=== PATIENT | female | born 1940 | race Caucasian/White ===

== ENCOUNTER 2016-12-04 19:35 | Emergency (ER) | payer OTHER ==
[~2016-12-04] VITALS: Ht 162.6 cm; Wt 49.7 kg
[~2016-12-04 19:35] MED LIST: AMLO-218; ASPI-664; CARB100T2; SIMV40TA2; TEN25
[2016-12-04 19:44] VITALS: Ht 162.6 cm; Wt 49.7 kg
--- NOTE | 2016-12-04 23:21 | ERA ---
ER Documentation Chief Complaint Date/Time DATE: 12/04/16 TIME: 23:20 Chief Complaint Right shoulder pain HPI The patient is a 76-year-old female, presenting to the ER because of right shoulder pain after she had a mechanical fall just prior to arrival. The pain is 2/10, worse with movement. He denies syncope, near syncope, neck pain, chest pain, head pain, abdominal pain, vomiting, dysuria, diarrhea. She does not smoke or drink Past medical history: hypertension, dyslipidemia, history of left breast carcinoma Past surgical history: , left breast lumpectomy ROS All systems reviewed and are negative except as per history of present illness. Medications Home Meds Active Scripts Acetaminophen* (Tylophen*) 500 Mg Capsule, 2 CAP PO Q8H Y for PAIN AND OR ELEVATED TEMP, #20 CAP Prov:YUSUF POP MD 12/05/16 Reported Medications Aspirin* (Aspirin* EC) 81 Mg Tablet. 11/04/10 Carbamazepine* (Carbamazepine*) 100 Mg Tab.chew 11/04/10 Amlodipine Besylate* (Norvasc*) 10 Mg Tablet 11/04/10 Simvastatin* (Zocor*) 40 Mg Tablet 11/04/10 Atenolol (Tenormin) 25 Mg Tab 11/04/10 Allergies Allergies: Coded Allergies: No Known Drug Allergies (Verified Allergy, Mild, 11/07/10) PMhx/Soc History of Surgery: Yes (LYMPHECTOMY, C-SEC X2) Anesthesia Reaction: No Hx Neurological Disorder: No Hx Respiratory Disorders: No Hx Cardiac Disorders: Yes (HTN, HIGH CHOLESTEROL) Hx Psychiatric Problems: No Hx Miscellaneous Medical Probl: Yes (LEFT BREAST CA) Hx Alcohol Use: No Hx Substance Use: No Hx Tobacco Use: Yes Physical Exam Vitals Vital Signs Date Time Temp Pulse Resp B/P Pulse Ox O2 Delivery O2 Flow Rate FiO2 12/04/16 19:44 100.4 98 20 127/63 96 Physical Exam Const: No acute distress. Head: Atraumatic. Eyes: Normal Conjunctiva. ENT: Normal External Ears, Nose and Mouth. Neck: Full range of motion. No meningismus. Resp: Clear to auscultation bilaterally. Cardio: Regular rate and rhythm, no murmurs. Abd: Soft, non distended, normal bowel sounds, non tender. Skin: No petechiae or rashes. Back: No midline or flank tenderness. Ext: Right shoulder with full range of motion, no erythema, no crepitus, no ecchymosis Neur: Awake and alert. No focal deficit Psych: Normal Mood and Affect. Procedures/MDM [place] [id number] Radiology Main Line: [phone] DIAGNOSTIC IMAGING REPORT Patient: KELSEA DILLON : 1940 Age: 76 Sex: F MR #: [id number] DOS: 12/04/16 2333 Ordering MD: YUSUF POP MD Location: E/R Room/Bed: PROCEDURE: XR right shoulder. CLINICAL INDICATION: PAIN TECHNIQUE: AP, Internal and external rotation views of the left shoulder were performed. COMPARISON: None. FINDINGS: There is normal osseous mineralization and alignment. No acute fracture or osseous lesion is identified. There are normal joints without evidence of arthritis or dislocation. The soft tissues are unremarkable. IMPRESSION: 1. Unremarkable right shoulder. RPTAT:AAJJ Physician Darlin Date Time Electronically viewed and signed by Physician Darlin on 12/05/2016 00:08 LEONEL/ CC: YUSUF POP MD MEDICAL MAKING DECISION: The patient is a 76-year-old female, presenting with acute right shoulder pain. She was treated with acetaminophen with good response. The differential diagnoses considered include but are not limited to internal derangement, fracture, contusion, sprain Departure Diagnosis: Primary Impression: Shoulder pain, right Condition: Good Comments She was discharged with acetaminophen I discussed the findings with the patient. I advised the patient to follow-up with the primary physician in about 1-2 days, sooner if needed and return if any concern. She was advised that if the pain is persistent, she would need to have MRI for further evaluation YUSUF POP MD Dec 04, 2016 23:21
--- NOTE | 2016-12-05 00:08 | RADRPT ---
PROCEDURE: XR right shoulder. CLINICAL INDICATION: PAIN TECHNIQUE: AP, Internal and external rotation views of the left shoulder were performed. COMPARISON: None. FINDINGS: There is normal osseous mineralization and alignment. No acute fracture or osseous lesion is identified. There are normal joints without evidence of arthritis or dislocation. The soft tissues are unremarkable. IMPRESSION: 1. Unremarkable right shoulder. RPTAT:AAJJ Physician Darlin Date Time Electronically viewed and signed by Physician Darlin on 12/05/2016 00:08 LEONEL/
[2016-12-05] MEDS ORDERED: ACET500C5 PO (00:34)
== END 2016-12-05 00:45 | disposition home or self-care (01) ==
LOC: E/R 19:35
DX: S49.91XA Unspecified injury of right shoulder and upper arm, initial encounter (principal); I10 Essential (primary) hypertension; W18.39XA Other fall on same level, initial encounter; Y92.9 Unspecified place or not applicable; Z87.891 Personal history of nicotine dependence; Z79.82 Long term (current) use of aspirin; Z85.3 Personal history of malignant neoplasm of breast

== ENCOUNTER 2017-08-17 22:47 | Inpatient (IN) | payer OTHER ==
[~2017-08-17] VITALS: Ht 157.5 cm; Wt 48.2 kg
[~2017-08-17 22:47] MED LIST changes: +ACET500C5 PO; +ATEN-138; -CARB100T2; +CARB100T2 PO; -TEN25
[2017-08-17] MEDS ORDERED: ASPI325T4 PO (23:23)
[2017-08-17] MEDS ORDERED: AMLO5TAB4 PO ×2 (23:23)
[2017-08-17] MEDS ORDERED: NIT4 SL (23:23)
[2017-08-17] MEDS ORDERED: ATOR20TA38 PO (23:29)
[2017-08-17 23:38] LABS: ALBUMIN 4.2 g/dl (3.3-4.9); ALBUMIN/GLOBULIN RATIO 1.27; BILIRUBIN,INDIRECT 0.5 mg/dl (0-1.1); BILIRUBIN,TOTAL 0.5 mg/dl (0.2-1.3); CALCIUM 9.2 mg/dl (8.4-10.2); CREATININE 0.92 mg/dl (0.44-1.00); POTASSIUM 3.3 mmol/L (3.5-5.1); TOTAL PROTEIN 7.5 g/dl (6.1-8.1); TROPONIN-I 0.068 ng/ml (0.00-0.12)
[2017-08-18] VITALS (9 sets, daily range): BP systolic 116–132; BP diastolic 56–65; PULSE 69–76; RESP 16; TEMP 98.2; Ht 157.5 cm; Wt 48.2 kg
[2017-08-18 00:25] LABS: BASOPHILS % 0.4 % (0.0-2.0); EOSINOPHILS # 0.2 10^3/ul (0.0-0.5); EOSINOPHILS % 3.2 % (0.0-7.0); HEMATOCRIT 37.2 % (37.0-47.0); HEMOGLOBIN 12.9 g/dl (12.0-16.0); LYMPHOCYTES # 0.9 10^3/ul (0.8-2.9); LYMPHOCYTES % 12.3 % (15.0-51.0); MEAN CORPUSCULAR HEMOGLOBIN 31.8 pg (29.0-33.0); MEAN CORPUSCULAR HGB CONC 34.7 g/dl (32.0-37.0); MEAN CORPUSCULAR VOLUME 91.6 fl (82.0-101.0); MEAN PLATELET VOLUME 9.5 fl (7.4-10.4); MONOCYTE # 0.5 10^3/ul (0.3-0.9); MONOCYTES % 6.7 % (0.0-11.0); NEUTROPHIL # 5.8 10^3/ul (1.6-7.5); PLATELET COUNT 297 10^3/UL (140-415); RED BLOOD COUNT 4.06 10^6/ul (4.20-5.40); RED CELL DISTRIBUTION WIDTH 11.9 % (11.5-14.5); WHITE BLOOD COUNT 7.6 10^3/ul (4.8-10.8)
[2017-08-18 00:31] LABS: INR 0.98
--- NOTE | 2017-08-18 00:57 | ERD ---
ER Documentation Chief Complaint Chief Complaint HPI This is a 76-year-old female comes in with increasing weakness over the past 2- 3 weeks but today Significantly worse. She is also very forgetful. She is complaining of weakness in bilateral lower extremities. Family says she has been more altered than normal lately as well as saying that she is very forgetful which is not normal for the patient. ROS All systems reviewed and are negative except as per history of present illness. Medications Home Meds Reported Medications Atorvastatin Calcium* (Atorvastatin Calcium*) 20 Mg Tablet, 20 MG PO QHS, #30 TAB 08/17/17 Aspirin* (Aspirin*) 325 Mg Tablet, 325 MG PO DAILY, TAB 08/17/17 Nitroglycerin* (Nitrostat*) 0.4 Mg Tab.subl, 0.4 MG SL Q5MIN Y for CHEST PAIN, BOTTLE 08/17/17 Amlodipine Besylate* (Norvasc*) 5 Mg Tablet, 5 MG PO DAILY, TAB 08/17/17 Carbamazepine* (Carbamazepine*) 100 Mg Tab.chew, 100 MG PO DAILY 11/04/10 Discontinued Reported Medications Amlodipine Besylate* (Norvasc*) 5 Mg Tablet, 5 MG PO BID, TAB 08/17/17 Aspirin* (Aspirin* EC) 81 Mg Tablet. 11/04/10 Amlodipine Besylate* (Norvasc*) 10 Mg Tablet 11/04/10 Simvastatin* (Zocor*) 40 Mg Tablet 11/04/10 Atenolol (Tenormin) 25 Mg Tab 11/04/10 Discontinued Scripts Acetaminophen* (Tylophen*) 500 Mg Capsule, 2 CAP PO Q8H Y for PAIN AND OR ELEVATED TEMP, #20 CAP Prov:YUSUF POP MD 12/05/16 Allergies Allergies: Coded Allergies: No Known Drug Allergies (Verified Allergy, Mild, 11/07/10) PMhx/Soc History of Surgery: Yes (LYMPHECTOMY, C-SEC X2) Anesthesia Reaction: No Hx Neurological Disorder: No Hx Respiratory Disorders: No Hx Cardiac Disorders: Yes (HTN, HIGH CHOLESTEROL) Hx Psychiatric Problems: No Hx Miscellaneous Medical Probl: Yes (LEFT BREAST CA) Hx Alcohol Use: No Hx Substance Use: No Hx Tobacco Use: No Smoking Status: Never smoker Physical Exam Vitals Vital Signs Date Time Temp Pulse Resp B/P Pulse Ox O2 Delivery O2 Flow Rate FiO2 08/17/17 23:16 98.2 60 13 123/67 99 Room Air Physical Exam Const: [] Head: Atraumatic Eyes: Normal Conjunctiva ENT: Normal External Ears, Nose and Mouth. Neck: Full range of motion..~ No meningismus. Resp: Clear to auscultation bilaterally Cardio: Regular rate and rhythm, no murmurs Abd: Soft, non tender, non distended. Normal bowel sounds Skin: No petechiae or rashes Back: No midline or flank tenderness Ext: No cyanosis, or edema Neur: Awake and alert Psych: Normal Mood and Affect Result Diagram: 08/17/17212408/17/172124 Results 24 hrs Laboratory Tests Test 08/17/17 21:25 White Blood Count 7.610^3/ul Red Blood Count 4.0610^6/ul Hemoglobin 12.9g/dl Hematocrit 37.2% Mean Corpuscular Volume 91.6fl Mean Corpuscular Hemoglobin 31.8pg Mean Corpuscular Hemoglobin Concent 34.7g/dl Red Cell Distribution Width 11.9% Platelet Count 38927^3/UL Mean Platelet Volume 9.5fl Neutrophils % 77.0% Lymphocytes % 12.3% Monocytes % 6.7% Eosinophils % 3.2% Basophils % 0.4% Nucleated Red Blood Cells % 0.0/100WBC Neutrophils # 5.810^3/ul Lymphocytes # 0.910^3/ul Monocytes # 0.510^3/ul Eosinophils # 0.210^3/ul Basophils # 0.010^3/ul Nucleated Red Blood Cells # 0.010^3/ul Prothrombin Time 13.0Sec Prothrombin Time Ratio 1.0 INR International Normalized Ratio 0.98 Activated Partial Thromboplast Time 28.0Sec Sodium Level 135mmol/L Potassium Level 3.3mmol/L Chloride Level 96mmol/L Carbon Dioxide Level 27mmol/L Anion Gap 15 Blood Urea Nitrogen 20mg/dl Creatinine 0.92mg/dl Glucose Level 126mg/dl Calcium Level 9.2mg/dl Total Bilirubin 0.5mg/dl Direct Bilirubin 0.00mg/dl Indirect Bilirubin 0.5mg/dl Aspartate Amino Transf (AST/SGOT) 62IU/L Alanine Aminotransferase (ALT/SGPT) 33IU/L Alkaline Phosphatase 126IU/L Troponin I 0.068ng/ml Total Protein 7.5g/dl Albumin 4.2g/dl Globulin 3.30g/dl Albumin/Globulin Ratio 1.27 Procedures/MDM EKG: Rate/Rhythm: [Normal Sinus Rhythm] QRS, ST, T-waves: [No changes consistent w/ acute ischemia] Impression: [No evidence of ischemia or arrhythmia] Chest X-ray 1V Interpreted by me: Soft Tissue: No acute abnormalities Bones: No acute abnormalities Mediastinum/Cardiac Silhouette/Lungs: [No acute abnormalities] Critical decision-makin-year-old female who has what looks to be acute alteration in mental status. Patient will be admitted for encephalopathic workup. Patient admitted to hospitalist Departure Diagnosis: Primary Impression: Acute encephalopathy Condition: Serious KATINA LANGE Aug 18, 2017 00:57
[2017-08-18] MEDS ORDERED: MAGNESIUM HYDROXIDE 30ML CUP PO PRN (06:30)
[2017-08-18] MEDS ORDERED: NACL 0.9% 3 ML SYG IV SCH (06:30)
[2017-08-18] MEDS ORDERED: ONDANSETRON 4 MG INJ IV PRN (06:30)
[2017-08-18] MEDS ORDERED: ALBUTEROL/IPRATROPIUM (NEB) 3 ML AMP HHN PRN (06:30)
[2017-08-18] MEDS ORDERED: morphine 2 MG INJ IV PRN (06:30)
[2017-08-18 08:08] LABS: BASOPHILS % 0.6 % (0.0-2.0); EOSINOPHILS # 0.3 10^3/ul (0.0-0.5); EOSINOPHILS % 4.7 % (0.0-7.0); HEMATOCRIT 34.8 % (37.0-47.0); LYMPHOCYTES % 15.4 % (15.0-51.0); MEAN CORPUSCULAR HEMOGLOBIN 31.8 pg (29.0-33.0); MEAN CORPUSCULAR HGB CONC 34.5 g/dl (32.0-37.0); MEAN CORPUSCULAR VOLUME 92.3 fl (82.0-101.0); MEAN PLATELET VOLUME 8.8 fl (7.4-10.4); MONOCYTE # 0.3 10^3/ul (0.3-0.9); MONOCYTES % 5.3 % (0.0-11.0); NEUTROPHIL # 4.5 10^3/ul (1.6-7.5); NEUTROPHILS % 73.7 % (39.0-77.0); PLATELET COUNT 252 10^3/UL (140-415); RED BLOOD COUNT 3.77 10^6/ul (4.20-5.40); WHITE BLOOD COUNT 6.2 10^3/ul (4.8-10.8)
--- NOTE | 2017-08-18 08:09 | RADRPT ---
PROCEDURE: XR Chest. CLINICAL INDICATION: Chest pain. TECHNIQUE: AP Portable chest. COMPARISON: None FINDINGS: The cardiomediastinal silhouette is normal. Atherosclerotic calcifications of the thoracic aorta ar e identified. There is marked elevation of the right hemidiaphragm with minimal right lower lobe ate lectasis. The left lung is clear. No consolidation or pleural effusion is seen. Diffuse osteopenia is evident. Surgical clips are seen in the left axilla. There also appear to be surgical clips in th e right upper quadrant, presumably from a prior cholecystectomy. A biliary stent is also visualized. IMPRESSION: 1. Marked elevation of the right hemidiaphragm with minimal right lower lobe atelectasis. 2. Atherosclerotic calcifications of the thoracic aorta. 3. There is evidence of clips in the right upper quadrant, presumably from a prior cholecystectomy. A biliary stent is visualized. RPTAT: HJAH .Tosin Verduzco MD, Date Time Electronically viewed and signed by .Tosin Verduzco MD, on 08/17/2017 22:32 .H/
[2017-08-18 08:27] LABS: ALANINE AMINOTRANSFERASE 30 IU/L (13-69); ALBUMIN 3.4 g/dl (3.3-4.9); ALBUMIN/GLOBULIN RATIO 1.03; ALKALINE PHOSPHATASE 100 IU/L (42-121); ANION GAP 8 (8-16); ASPARTATE AMINO TRANSFERASE 56 IU/L (15-46); BILIRUBIN,INDIRECT 0.7 mg/dl (0-1.1); BILIRUBIN,TOTAL 0.7 mg/dl (0.2-1.3); BLOOD UREA NITROGEN 15 mg/dl (7-20); CARBON DIOXIDE 29 mmol/L (21-31); CHLORIDE 106 mmol/L (97-110); CREATININE 0.76 mg/dl (0.44-1.00); GLUCOSE 98 mg/dl (70-220); PHOSPHORUS 3.7 mg/dl (2.5-4.9); POTASSIUM 3.2 mmol/L (3.5-5.1); SODIUM 140 mmol/L (135-144); TOTAL PROTEIN 6.7 g/dl (6.1-8.1)
[2017-08-18] MEDS: AMLODIPINE 5 MG TAB PO SCH (08:51)
[2017-08-18] MEDS: carBAMAZepine CHEW 100 MG CHEW PO SCH (08:51)
[2017-08-18] MEDS: ASPIRIN 325 MG TAB PO SCH (08:51)
--- NOTE | 2017-08-18 08:56 | HP ---
Date/Time of Note Date/Time of Note DATE: 08/18/17 TIME: 08:48 Assessment/Plan VTE Prophylaxis VTE Prophylaxis Intervention: SCD's Lines/Catheters IV [facility] Saline Lock Urinary Cath still in place: Yes Reason Cath still needed: terminal illness/intractable pain Assessment/Plan Assessment/Plan ASSESSMENT 76-year-old female with a history of hypertension, dyslipidemia, left breast carcinoma status post lumpectomy in the chemo 10 years ago here status post fall as well as progressively worsening generalized weakness, forgetfulness and decreased p.o. intake 3 weeks PLAN Will obtain CT of her head Additional imaging will be ordered as needed Physical therapy evaluation Neurology consult will be considered HPI/ROS Admit Date/Time Admit Date/Time Hx of Present Illness This is a 76-year-old female with a history of hypertension, dyslipidemia, left breast carcinoma status post lumpectomy in the chemo 10 years ago. Patient was brought to the ER after she fell down twice. Most of the information is gathered through talking to her son on the phone. Yesterday she was found by family member on the floor and she was unable to get up on her own. According to the patient, she bent down to pickle cutter something from the floor when she ended up falling down. She denied hitting her head but complains of left-sided neck pain. Patient again fell down when she was trying to get on her bed. As such, she was brought to the ER for evaluation. According to her son, over the past 3 weeks he noted decreased p.o. intake, generalized weakness and forgetfulness. Normally, she has been active but seems like family noted noticeable change in her overall condition. When she presented to the ER, vitals were stable. Labs shows a potassium of 3.3 , AST 62, otherwise CBC and CMP were within acceptable range. PMH/Family/Social Social History Smoking Status: Never smoker Exam/Review of Systems Vital Signs Vitals Vital Signs Date Time Temp Pulse Resp B/P Pulse Ox O2 Delivery O2 Flow Rate FiO2 08/18/17 08:21 98.2 57 12 139/75 96 Room Air Exam Constitutional: other (Appears weak. Speaking slowly) Head: atraumatic, normocephalic Eyes: EOMI, PERRL Neck: other (No obvious deformity noted on the neck and she is able to her neck without difficulty) Cardiovascular: nl pulses, regular rate and rhythm Gastrointestinal: non-tender, soft Extremities: normal pulses Labs Result Diagram: 08/18/17 0759 08/18/17 0759 Medications Medications Current Medications Ondansetron HCl (Zofran Inj) 4 mg Q6H PRN IV NAUSEA AND/OR VOMITING; Start 08/18/17 at 06:30 Acetaminophen (Tylenol Tab) 650 mg Q6H PRN PO PAIN LEVEL 1-3 OR FEVER; Start 08/18/17 at 06:30 Morphine Sulfate (morphine) 2 mg Q4H PRN IV SEVERE PAIN LEVEL 7-10; Start 08/18 at 06:30 Magnesium Hydroxide (Milk Of Mag) 30 ml DAILY PRN PO CONSTIPATION; Start at 06:30 Amlodipine Besylate (Norvasc) 5 mg DAILY PO ; Start 08/18/17 at 09:00 Aspirin (Aspirin) 325 mg DAILY PO ; Start 08/18/17 at 09:00 Atorvastatin Calcium (Lipitor) 20 mg QHS PO ; Start 08/18/17 at 21:00 Carbamazepine (Tegretol) 100 mg DAILY PO ; Start 08/18/17 at 09:00 KATINA CALLE MD Aug 18, 2017 08:56
--- NOTE | 2017-08-18 09:31 | RADRPT ---
PROCEDURE: CT HEAD NON CONTRAST CLINICAL INDICATION: Status post fall TECHNIQUE: Utilizing the multi-slice spiral CT scanner, multiple images were obtained through the b rain without intravenous contrast. Automatic exposure control was utilized as dose lowering techniqu e One of more of the following dose reduction techniques were utilized: -automatic exposure control.-a djustment of the mA and/or kV according to patient size. -Use of iterative reconstruction technique. Radiation Dose: CTDI is 43.27 mGy. DLP is 630.20 mGy-cm. COMPARISON: None FINDINGS: Ventricular system is diffusely enlarged bilaterally. Bilateral basal ganglia calcification seen. Pr oportionate overlying brain atrophy noted. Periventricular low density area suggestive of mild chron ic microangiopathic ischemic changes. No acute intracranial bleed, midline shift, acute extra-axial collection noted. Bony calvarium appears intact. Mild right high parietal soft tissue swelling noted . IMPRESSION: NO ACUTE INTRACRANIAL BLEED NOTED. RPTAT: HMB Physician Timothy Date Time Electronically viewed and signed by Physician Timothy on 08/18/2017 09:31 MB/
[2017-08-18 09:45] LABS: FOLATE > 20.0 ng/ml (2.8-20.0)
[2017-08-18] MEDS: ATORVASTATIN 20 MG TAB PO SCH (22:51)
[2017-08-19] VITALS (11 sets, daily range): BP systolic 119–153; BP diastolic 59–72; PULSE 63–83; RESP 16–18
[2017-08-19] MEDS: ACETAMINOPHEN 325 MG TAB PO PRN (01:16)
[2017-08-19] MEDS: ASPIRIN 325 MG TAB PO SCH (08:56)
[2017-08-19] MEDS: AMLODIPINE 5 MG TAB PO SCH (08:57)
[2017-08-19 08:58] LABS: BASOPHILS % 0.5 % (0.0-2.0); EOSINOPHILS # 0.4 10^3/ul (0.0-0.5); EOSINOPHILS % 5.4 % (0.0-7.0); HEMATOCRIT 37.1 % (37.0-47.0); HEMOGLOBIN 12.4 g/dl (12.0-16.0); LYMPHOCYTES # 1.1 10^3/ul (0.8-2.9); LYMPHOCYTES % 13.4 % (15.0-51.0); MEAN CORPUSCULAR HEMOGLOBIN 30.5 pg (29.0-33.0); MEAN CORPUSCULAR HGB CONC 33.4 g/dl (32.0-37.0); MEAN CORPUSCULAR VOLUME 91.4 fl (82.0-101.0); MEAN PLATELET VOLUME 9.1 fl (7.4-10.4); MONOCYTE # 0.4 10^3/ul (0.3-0.9); MONOCYTES % 5.6 % (0.0-11.0); NEUTROPHIL # 5.8 10^3/ul (1.6-7.5); NEUTROPHILS % 74.7 % (39.0-77.0); PLATELET COUNT 266 10^3/UL (140-415); RED BLOOD COUNT 4.06 10^6/ul (4.20-5.40); RED CELL DISTRIBUTION WIDTH 12.1 % (11.5-14.5); WHITE BLOOD COUNT 7.8 10^3/ul (4.8-10.8)
[2017-08-19] MEDS: carBAMAZepine CHEW 100 MG CHEW PO SCH (08:59)
[2017-08-19 09:24] LABS: CALCIUM 8.7 mg/dl (8.4-10.2); CREATININE 0.83 mg/dl (0.44-1.00); MAGNESIUM 1.9 mg/dl (1.7-2.5); PHOSPHORUS 3.7 mg/dl (2.5-4.9); POTASSIUM 3.2 mmol/L (3.5-5.1)
[2017-08-19] MEDS ORDERED: INFLUENZA VIRUS VACCINE 0.5 ML SYG IM* ONE (13:00)
[2017-08-19] MEDS ORDERED: POTASSIUM CHLORIDE (SR) 20 MEQ TAB PO STA (13:39)
--- NOTE | 2017-08-19 13:50 | PN ---
Date/Time of Note Date/Time of Note DATE: 08/19/17 TIME: 13:47 Assessment/Plan VTE Prophylaxis VTE Prophylaxis Intervention: SCD's Lines/Catheters IV Catheter Type (from Nrs): Saline Lock Urinary Cath still in place: Yes Reason Cath still needed: urinary retention Assessment/Plan Chief Complaint/Hosp Course A/P: 76-year-old female with a history of hypertension, dyslipidemia, left breast carcinoma status post lumpectomy in the chemo 10 years ago here status post fall as well as progressively worsening generalized weakness, forgetfulness and decreased p.o. intake 3 weeks. 1. weakness/s/p fall - CT of her head was negative. Apparently patient has been falling at home as well as having decreased p.o. intake and low appetite. -We will go ahead and check carotid Dopplers, echocardiogram, MRI of the brain as well. - Physical therapy evaluation -If any abnormalities are found on the above imaging studies, neurology consult will be considered 2. HTN -stable, continue current meds 3. High cholesterol: Continue Lipitor 4. History of left breast carcinoma:status post lumpectomy in the chemo 10 years ago -Monitor for now Problems: Subjective 24 Hr Interval Summary Free Text/Dictation Patient had no acute events overnight. Exam/Review of Systems Vital Signs Vitals Vital Signs Date Time Temp Pulse Resp B/P Pulse Ox O2 Delivery O2 Flow Rate FiO2 08/19/17 12:17 67 08/19/17 11:37 98.5 18 119/59 97 08/19/17 04:00 Room Air Intake and Output 08/18/17 08/18/17 08/19/17 15:00 23:00 07:00 Intake Total 120 ml Output Total 600 ml 500 ml 400 ml Balance -600 ml -500 ml -280 ml Exam Constitutional: Awake and alert, slightly lethargic Head: atraumatic, normocephalic Eyes: EOMI, PERRL Neck: other (No obvious deformity noted on the neck and she is able to her neck without difficulty) Cardiovascular: nl pulses, regular rate and rhythm Gastrointestinal: non-tender, soft Extremities: normal pulses Results Result Diagram: 08/19/17 0829 08/19/17 0829 Results 24 hrs Laboratory Tests Test 08/19/17 08:29 White Blood Count 7.8 # Red Blood Count 4.06 L Hemoglobin 12.4 Hematocrit 37.1 Mean Corpuscular Volume 91.4 Mean Corpuscular Hemoglobin 30.5 Mean Corpuscular Hemoglobin Concent 33.4 Red Cell Distribution Width 12.1 Platelet Count 266 Mean Platelet Volume 9.1 Neutrophils % 74.7 Lymphocytes % 13.4 L Monocytes % 5.6 Eosinophils % 5.4 Basophils % 0.5 Nucleated Red Blood Cells % 0.0 Neutrophils # 5.8 Lymphocytes # 1.1 Monocytes # 0.4 Eosinophils # 0.4 Basophils # 0.0 Nucleated Red Blood Cells # 0.0 Sodium Level 137 Potassium Level 3.2 L Chloride Level 101 Carbon Dioxide Level 26 Anion Gap 13 Blood Urea Nitrogen 15 Creatinine 0.83 Glucose Level 101 Calcium Level 8.7 Phosphorus Level 3.7 Magnesium Level 1.9 Medications Medications Current Medications Ondansetron HCl (Zofran Inj) 4 mg Q6H PRN IV NAUSEA AND/OR VOMITING; Start 08/18/17 at 06:30 Acetaminophen (Tylenol Tab) 650 mg Q6H PRN PO PAIN LEVEL 1-3 OR FEVER Last administered on 08/19/17 01:16; Admin Dose 650 MG; Start 08/18/17 at 06:30 Morphine Sulfate (morphine) 2 mg Q4H PRN IV SEVERE PAIN LEVEL 7-10 Last administered on 08/18/17 08:52; Admin Dose 2 MG; Start 08/18/17 at 06:30 Magnesium Hydroxide (Milk Of Mag) 30 ml DAILY PRN PO CONSTIPATION; Start at 06:30 Amlodipine Besylate (Norvasc) 5 mg DAILY PO Last administered on 08/19/17 08: 57; Admin Dose 5 MG; Start 08/18/17 at 09:00 Aspirin (Aspirin) 325 mg DAILY PO Last administered on 08/19/17 08:56; Admin Dose 325 MG; Start 08/18/17 at 09:00 Atorvastatin Calcium (Lipitor) 20 mg QHS PO Last administered on 08/18/17 22: 51; Admin Dose 20 MG; Start 08/18/17 at 21:00 Carbamazepine (Tegretol) 100 mg DAILY PO Last administered on 08/19/17 08:59; Admin Dose 100 MG; Start 08/18/17 at 09:00 RICKY JOHN 8, 2017 13:50
--- NOTE | 2017-08-19 14:32 | RADRPT ---
PROCEDURE: US Carotids. CLINICAL INDICATION: bruit , dizziness TECHNIQUE: Multiple sonographic of the carotid bifurcation region and vertebral arteries were obta ined utilizing billingsley scale, duplex and color-flow imaging. The images were reviewed on a PACS worksta tion. COMPARISON: No prior studies are available for comparison. FINDINGS: Evaluation of the right carotid bifurcation region reveals no significant calcific atherosclerotic d isease. Evaluation of the left carotid bifurcation region reveals no significant calcific atherosclerotic di sease. There is antegrade flow within the vertebral arteries bilaterally. RIGHT CAROTID MEASUREMENTS: Common Carotid Gxmdqi91.1 (cm/sec) Internal Carotid Artery - sxfbytis96.2 (cm/sec) Internal Carotid Artery - mid49.9 (cm/sec) Internal Carotid Artery - rracnc47.8 (cm/sec) Internal Carotid/Common Carotid0.66 LEFT CAROTID MEASUREMENTS: Common Carotid Bqiwxz86.2 (cm/sec) Internal Carotid Artery - htcnluwk00.5 (cm/sec) Internal Carotid Artery - mid65.9 (cm/sec) Internal Carotid Artery - isdexh20.9 (cm/sec) Internal Carotid/Common Carotid0.92 RPTAT: AA IMPRESSION: No evidence for hemodynamically significant stenosis in the bilateral internal carotid arteries - va lidated velocity measurements with angiographic measurements, velocity criteria are extrapolated fro m diameter data as defined by the Society of Radiologists in Ultrasound Consensus Conference Radiolo gy 2003; 229;340-346. This study does indirectly reference the measurement of the distal ICA diamet er as the denominator for stenosis measurement. Normal antegrade flow in the vertebral arteries bilaterally. .Avelino Srivastava MD, Date Time Electronically viewed and signed by .Avelino Srivastava MD, MD on 08/19/2017 14:32 .S/
[2017-08-19] MEDS: ATORVASTATIN 20 MG TAB PO SCH (21:29)
[2017-08-20] VITALS (12 sets, daily range): BP systolic 125–159; BP diastolic 59–69; PULSE 61–83; RESP 17–21
[2017-08-20] MEDS: carBAMAZepine CHEW 100 MG CHEW PO SCH (08:58)
[2017-08-20] MEDS: ASPIRIN 325 MG TAB PO SCH (08:59)
[2017-08-20] MEDS: AMLODIPINE 5 MG TAB PO SCH (08:59)
--- NOTE | 2017-08-20 12:34 | PN ---
Date/Time of Note Date/Time of Note DATE: 08/20/17 TIME: 12:33 Assessment/Plan VTE Prophylaxis VTE Prophylaxis Intervention: SCD's Lines/Catheters IV [facility] (from [facility] Saline Lock Urinary Cath still in place: Yes Reason Cath still needed: urinary retention Assessment/Plan Chief Complaint/Hosp Course A/P: 76-year-old female with a history of hypertension, dyslipidemia, left breast carcinoma status post lumpectomy in the chemo 10 years ago here status post fall as well as progressively worsening generalized weakness, forgetfulness and decreased p.o. intake 3 weeks. 1. weakness/s/p fall - CT of her head was negative. Apparently patient has been falling at home as well as having decreased p.o. intake and low appetite. -carotid Dopplers showed no significant abnormalities, follow-up, echocardiogram and MRI of the brain as well -pending -Based on physical therapy eval, likely patient will need SNIF, family agrees , will follow up with disease case manager on this. -If any abnormalities are found on the above imaging studies, neurology consult will be considered 2. HTN -stable, continue current meds 3. High cholesterol: Continue Lipitor 4. History of left breast carcinoma:status post lumpectomy in the chemo 10 years ago -Monitor for now Problems: Subjective 24 Hr Interval Summary Free Text/Dictation Patient had some confusion last night, try to get out of bed, now requiring sitter. More calm this morning. Echocardiogram results are still pending. MRI of the brain is still pending as well. Exam/Review of Systems Vital Signs Vitals Vital Signs Date Time Temp Pulse Resp B/P Pulse Ox O2 Delivery O2 Flow Rate FiO2 08/20/17 12:10 74 08/20/17 11:36 97.8 20 129/62 96 08/19/17 04:00 Room Air Intake and Output 08/19/17 08/19/17 08/20/17 15:00 23:00 07:00 Intake Total 880 ml 550 ml Output Total 1400 ml 1250 ml Balance -520 ml -700 ml Exam Constitutional: More lethargic Head: atraumatic, normocephalic Eyes: EOMI, PERRL Neck: other (No obvious deformity noted on the neck and she is able to her neck without difficulty) Cardiovascular: nl pulses, regular rate and rhythm Gastrointestinal: non-tender, soft Extremities: normal pulses Results Result Diagram: 08/19/1782808/19/17828 Medications Medications Current Medications Ondansetron HCl (Zofran Inj) 4 mg Q6H PRN IV NAUSEA AND/OR VOMITING; Start 08/18/17 at 06:30 Acetaminophen (Tylenol Tab) 650 mg Q6H PRN PO PAIN LEVEL 1-3 OR FEVER Last administered on 08/19/17 01:16; Admin Dose 650 MG; Start 08/18/17 at 06:30 Morphine Sulfate (morphine) 2 mg Q4H PRN IV SEVERE PAIN LEVEL 7-10 Last administered on 08/18/17 08:52; Admin Dose 2 MG; Start 08/18/17 at 06:30 Magnesium Hydroxide (Milk Of Mag) 30 ml DAILY PRN PO CONSTIPATION; Start at 06:30 Amlodipine Besylate (Norvasc) 5 mg DAILY PO Last administered on 08/20/17 08: 59; Admin Dose 5 MG; Start 08/18/17 at 09:00 Aspirin (Aspirin) 325 mg DAILY PO Last administered on 08/20/17 08:59; Admin Dose 325 MG; Start 08/18/17 at 09:00 Atorvastatin Calcium (Lipitor) 20 mg QHS PO Last administered on 08/19/17 21: 29; Admin Dose 20 MG; Start 08/18/17 at 21:00 Carbamazepine (Tegretol) 100 mg DAILY PO Last administered on 08/20/17 08:58; Admin Dose 100 MG; Start 08/18/17 at 09:00 RICKY JOHN 9, 2017 12:34
[2017-08-20 12:52] LABS: BASOPHILS % 0.4 % (0.0-2.0); EOSINOPHILS # 0.2 10^3/ul (0.0-0.5); EOSINOPHILS % 2.2 % (0.0-7.0); HEMATOCRIT 37.3 % (37.0-47.0); HEMOGLOBIN 12.5 g/dl (12.0-16.0); LYMPHOCYTES # 1.1 10^3/ul (0.8-2.9); LYMPHOCYTES % 11.4 % (15.0-51.0); MEAN CORPUSCULAR HEMOGLOBIN 30.7 pg (29.0-33.0); MEAN CORPUSCULAR HGB CONC 33.5 g/dl (32.0-37.0); MEAN CORPUSCULAR VOLUME 91.6 fl (82.0-101.0); MEAN PLATELET VOLUME 9.3 fl (7.4-10.4); MONOCYTE # 0.5 10^3/ul (0.3-0.9); MONOCYTES % 5.4 % (0.0-11.0); NEUTROPHIL # 7.7 10^3/ul (1.6-7.5); NEUTROPHILS % 80.4 % (39.0-77.0); PLATELET COUNT 267 10^3/UL (140-415); RED BLOOD COUNT 4.07 10^6/ul (4.20-5.40); RED CELL DISTRIBUTION WIDTH 12.3 % (11.5-14.5); WHITE BLOOD COUNT 9.6 10^3/ul (4.8-10.8)
[2017-08-20 13:00] LABS: ALBUMIN 3.7 g/dl (3.3-4.9); ALBUMIN/GLOBULIN RATIO 1.15; BILIRUBIN,INDIRECT 0.3 mg/dl (0-1.1); BILIRUBIN,TOTAL 0.3 mg/dl (0.2-1.3); CALCIUM 8.6 mg/dl (8.4-10.2); CREATININE 0.69 mg/dl (0.44-1.00); POTASSIUM 3.9 mmol/L (3.5-5.1); TOTAL PROTEIN 6.9 g/dl (6.1-8.1)
--- NOTE | 2017-08-20 15:11 | RADRPT ---
Echocardiogram Report Patient Name: KELSEA DILLON Gender: Female Date: 1940 Study Date: 19-Aug-2017 Sub Assembly Team Worker: Meredith Walters [facility] Location: [id number] Ref. Physician: RICKY JOHN Quality: Good Procedures: Transthoracic echocardiogram with complete 2D, M-Mode, and doppler examination. Indications: weakness, s/p fall. 2D/M Mode Doppler Measurement Value Normal Ranges Measurement Value Normal Ranges LVIDd 2D 3.5 3.5 - 5.6 cm AV Peak Nicanor 1.3 m/sec LVIDs 2D 2.2 2.1 - 4.1 cm AV Peak PG 6.8 mmHg LVPWd 2D 1.4 0.6 - 1.1 cm LVOT Peak Nicanor 1.1 m/sec IVSd 2D 1.5 0.6 - 1.1 cm LVOT Peak PG 4.9 mmHg AoR Diam 2D 2.9 2.0 - 3.7 cm MV E Peak Nicanor 0.7 m/sec EDV 2D 52.4 cm3 MV A Peak Nicanor 0.9 m/sec ESV 2D 10.8 cm3 MV E/A 0.7 LA Dimen 2D 3.0 2.3 - 4.0 cm MV Decel Time 264 msec MV Decel Lasalle 3 MV E/A 0.7 Findings Left Ventricle: Hyperdynamic left ventricular systolic function. Normal left ventricular cavity size. Moderate concentric left ventricular hypertrophy. Ejection fraction is visually estimated at 70 %. Tissue Doppler/Mitral Doppler indices are consistent with impaired relaxation (Stage I diastolic dysfunction). Right Ventricle: Normal right ventricular size. Normal right ventricular systolic function. Left Atrium: The left atrium is normal in size. Right Atrium: The right atrium is normal in size. Mitral Valve: Normal appearance of the mitral valve. Mild mitral annular calcification. Trace mitral regurgitation. Aortic Valve: Normal appearance of the aortic valve. No significant aortic stenosis or insufficiency. Tricuspid Valve: Normal appearance and function of the tricuspid valve with trace physiologic regurgitation. Pulmonic Valve: Pulmonic valve not well visualized. Pericardium: Normal pericardium with no significant pericardial effusion. Aorta: Normal aortic root. IVC: Normal size and normal respiratory collapse consistent with normal right atrial pressure. Conclusions 1.Hyperdynamic left ventricular systolic function. Normal left ventricular cavity size. Moderate concentric left ventricular hypertrophy. Ejection fraction is visually estimated at 70 %. Tissue Doppler/Mitral Doppler indices are consistent with impaired relaxation (Stage I diastolic dysfunction). 2.Normal right ventricular size. Normal right ventricular systolic function. 3.The left atrium is normal in size. 4.The right atrium is normal in size. 5.No significant valvular stenosis or regurgitation seen. 6.Normal pericardium with no significant pericardial effusion. Electronically Signed By: Leroy Hilton 20-Aug-2017 15:10:44 -0800 Patient Name: KELSEA DILLON Study Date: 19-Aug-2017 [id number]
[2017-08-20] MEDS: ATORVASTATIN 20 MG TAB PO SCH (21:13)
[2017-08-20] MEDS: ACETAMINOPHEN 325 MG TAB PO PRN (23:11)
[2017-08-21] VITALS (11 sets, daily range): BP systolic 114–150; BP diastolic 58–77; PULSE 58–152; RESP 16–20
--- NOTE | 2017-08-21 03:35 | RADRPT ---
PROCEDURE: MR Brain without contrast. CLINICAL INDICATION: Status post fall, rule out CVA. TECHNIQUE: An MRI of the brain was performed on a utilizing the following sequences: Sagittal and axial T1 weighted, axial T2 weighted, coronal GRE, axial diffusion weighted with ADC mapping, and axial FLAIR. COMPARISON: CT brain 08/18/2017. FINDINGS: There is no acute intracranial hemorrhage, midline shift, mass effect or acute ischemic infarct. The cerebellar tonsils are normal in configuration and location. Moderate generalized parenchymal volume loss is present. Asymmetric volume loss involves the medial right temporal lobe where there is asymmetric enlargement of the right temporal horn present. These findings are demonstrated on axial FLAIR images 11 and may represent the sequela of remote ischemic, infectious, or inflammatory insult. Moderate punctate hyperintense foci are present on FLAIR and T2 -weighted images within the bilateral subcortical and periventricular white matter. Considerations i nclude microvascular white matter ischemic disease (favored), the sequela of chronic migraines, and a remote infectious or inflammatory process. A right anterior middle cranial fossa arachnoid cyst is present measuring 13 x 17 mm in AP and transverse dimensions. A variation partially empty sella is demonstrated. Gradient echo images reveal no evidence of hemorrhagic blood products. No space occupy ing intra-axial masses or extra-axial fluid collections are present. The orbits are unremarkable. A right maxillary sinus retention cyst or polyp is present. Normal signal flow voids persist within the internal carotid, vertebral, and basilar arteries. IMPRESSION: 1. No acute ischemic infarct. 2. Moderate generalized parenchymal volume loss with asymmetric loss noted involving the right temp oral lobe. Findings may represent the sequela of prior ischemic, infectious, or inflammatory insult. 3. Moderate punctate hyperintense foci on FLAIR and T2-weighted images within the bilateral subcorti fuad and periventricular deep white matter. Findings are favored to represent microvascular white mat ter ischemic disease. 4. Right anterior middle cranial fossa arachnoid cyst. 5. Right maxillary sinus retention cyst. 6. Variation partially empty sella. RPTAT: HRSR Physician Ted Date Time Electronically viewed and signed by Physician Ted on 08/21/2017 03:34 RR/
[2017-08-21] MEDS: AMLODIPINE 5 MG TAB PO SCH (08:20)
[2017-08-21] MEDS: carBAMAZepine CHEW 100 MG CHEW PO SCH (08:21)
[2017-08-21] MEDS: ASPIRIN 325 MG TAB PO SCH (08:21)
--- NOTE | 2017-08-21 11:19 | PDOCDIS ---
Discharge Instructions CONDITION Patient Condition: Stable HOME CARE INSTRUCTIONS: Special Diet: Regular RICKY JOHN Aug 21, 2017 11:19
--- NOTE | 2017-08-21 11:27 | DS ---
Date/Time of Note Date/Time of Note DATE: 08/21/17 TIME: 11:20 Discharge Summary Admission/Discharge Info Admit Date/Time Aug 18, 2017 at 00:43 Discharge Date/Time Discharge Diagnosis 1. weakness/s/p fall - CT of her head was negative. Apparently patient has been falling at home as well as having decreased p.o. intake and low appetite. -carotid Dopplers showed no significant abnormalities, MRI showed no acute findings, echocardiogram showed ejection fraction 70%.Hyperdynamic left ventricular systolic function. Normal left ventricular cavity size. Moderate concentric left ventricular hypertrophy. And some stage I diastolic dysfunction. 2. HTN -stable, continue current meds 3. High cholesterol: Continue Lipitor 4. History of left breast carcinoma:status post lumpectomy in the chemo 10 years ago -Monitor for now Patient Condition: Stable Hospital Course 76-year-old female with a history of hypertension, dyslipidemia, left breast carcinoma status post lumpectomy in the chemo 10 years ago. Patient was brought to the ER after she fell down twice. Most of the information is gathered through talking to her son on the phone. Yesterday she was found by family member on the floor and she was unable to get up on her own. According to the patient, she bent down to fruit or nut picker something from the floor when she ended up falling down. She denied hitting her head but complains of left-sided neck pain. Patient again fell down when she was trying to get on her bed. As such, she was brought to the ER for evaluation. According to her son, over the past 3 weeks he noted decreased p.o. intake, generalized weakness and forgetfulness. Normally, she has been active but seems like family noted noticeable change in her overall condition.When she presented to the ER, vitals were stable. Labs shows a potassium of 3.3, AST 62, otherwise CBC and CMP were within acceptable range. So she was admitted seen by speech therapy and physical therapy teams. She had some confusion symptoms at one point required a one-to-one sitter as it was thought to be secondary to delirium. She had imaging studies performed as the results are mentioned below. Slowly improved however, a UA was pending by the time of discharge, but her vital signs are stable otherwise, she was able tolerate diet, her labs were essentially normal, and once we get the results of the UA back as long as it will show any acute abnormalities she will be discharged to [facility] facility today as this was a recommendation from the physical therapist however. Family agrees to this and patient will continue some basic rehab there for a few days. See printed medical reconciliation sheet for full list of discharge medications. MRI of the brain showed: IMPRESSION: 1. No acute ischemic infarct. 2. Moderate generalized parenchymal volume loss with asymmetric loss noted involving the right temporal lobe. Findings may represent the sequela of prior ischemic, infectious, or inflammatory insult. 3. Moderate punctate hyperintense foci on FLAIR and T2-weighted images within the bilateral subcortical and periventricular deep white matter. Findings are favored to represent microvascular white matter ischemic disease. 4. Right anterior middle cranial fossa arachnoid cyst. 5. Right maxillary sinus retention cyst. 6. Variation partially empty sella. Carotid Doppler study showed no hemodynamically significant stenosis noted. 2D ECHO :Conclusions 1. Hyperdynamic left ventricular systolic function. Normal left ventricular cavity size. Moderate concentric left ventricular hypertrophy. Ejection fraction is visually estimated at 70 %. Tissue Doppler/Mitral Doppler indices are consistent with impaired relaxation (Stage I diastolic dysfunction). 2. Normal right ventricular size. Normal right ventricular systolic function. 3. The left atrium is normal in size. 4. The right atrium is normal in size. 5. No significant valvular stenosis or regurgitation seen. 6. Normal pericardium with no significant pericardial effusion. Home Meds Reported Medications Atorvastatin Calcium* (Atorvastatin Calcium*) 20 Mg Tablet, 20 MG PO QHS, #30 TAB 08/17/17 Aspirin* (Aspirin*) 325 Mg Tablet, 325 MG PO DAILY, TAB 08/17/17 Nitroglycerin* (Nitrostat*) 0.4 Mg Tab.subl, 0.4 MG SL Q5MIN Y for CHEST PAIN, BOTTLE 08/17/17 Amlodipine Besylate* (Norvasc*) 5 Mg Tablet, 5 MG PO DAILY, TAB 08/17/17 Carbamazepine* (Carbamazepine*) 100 Mg Tab.chew, 100 MG PO DAILY 11/04/10 Discontinued Reported Medications Amlodipine Besylate* (Norvasc*) 5 Mg Tablet, 5 MG PO BID, TAB 08/17/17 Aspirin* (Aspirin* EC) 81 Mg Tablet. 11/04/10 Amlodipine Besylate* (Norvasc*) 10 Mg Tablet 11/04/10 Simvastatin* (Zocor*) 40 Mg Tablet 11/04/10 Atenolol (Tenormin) 25 Mg Tab 11/04/10 Discontinued Scripts Acetaminophen* (Tylophen*) 500 Mg Capsule, 2 CAP PO Q8H Y for PAIN AND OR ELEVATED TEMP, #20 CAP Prov:YUSUF POP MD 12/05/16 Primary Care Provider Not On Staff Doctor Time spent on discharge: > 30 minutes Pending Labs Laboratory Tests Test 08/20/17 12:12 08/20/17 12:14 Sodium Level 135mmol/L (135-144) Potassium Level 3.9mmol/L (3.5-5.1) Chloride Level 100mmol/L (97-110) Carbon Dioxide Level 26mmol/L (21-31) Anion Gap 13 (8-16) Blood Urea Nitrogen 13mg/dl (7-20) Creatinine 0.69mg/dl (0.44-1.00) Glucose Level 102mg/dl (70-220) Calcium Level 8.6mg/dl (8.4-10.2) Total Bilirubin 0.3mg/dl (0.2-1.3) Direct Bilirubin 0.00mg/dl (0.00-0.20) Indirect Bilirubin 0.3mg/dl (0-1.1) Aspartate Amino Transf (AST/SGOT) 36IU/L (15-46) Alanine Aminotransferase (ALT/SGPT) 36IU/L (13-69) Alkaline Phosphatase 99IU/L (42-121) Total Protein 6.9g/dl (6.1-8.1) Albumin 3.7g/dl (3.3-4.9) Globulin 3.20g/dl (1.3-3.2) Albumin/Globulin Ratio 1.15 White Blood Count 9.610^3/ul (4.8-10.8) Red Blood Count 4.0710^6/ul (4.20-5.40) Hemoglobin 12.5g/dl (12.0-16.0) Hematocrit 37.3% (37.0-47.0) Mean Corpuscular Volume 91.6fl (82.0-101.0) Mean Corpuscular Hemoglobin 30.7pg (29.0-33.0) Mean Corpuscular Hemoglobin Concent 33.5g/dl (32.0-37.0) Red Cell Distribution Width 12.3% (11.5-14.5) Platelet Count 40826^3/UL (140-415) Mean Platelet Volume 9.3fl (7.4-10.4) Neutrophils % 80.4% (39.0-77.0) Lymphocytes % 11.4% (15.0-51.0) Monocytes % 5.4% (0.0-11.0) Eosinophils % 2.2% (0.0-7.0) Basophils % 0.4% (0.0-2.0) Nucleated Red Blood Cells % 0.0/100WBC (0.0-0.0) Neutrophils # 7.710^3/ul (1.6-7.5) Lymphocytes # 1.110^3/ul (0.8-2.9) Monocytes # 0.510^3/ul (0.3-0.9) Eosinophils # 0.210^3/ul (0.0-0.5) Basophils # 0.010^3/ul (0.0-0.1) Nucleated Red Blood Cells # 0.010^3/ul (0.0-0.0) RICKY JOHN Aug 21, 2017 11:27
[2017-08-21 13:54] LABS: ADD UMIC YES; UR ASCORBIC ACID NEGATIVE (NEGATIVE); UR BACTERIA FEW /HPF (NONE SEEN); UR BILIRUBIN (Dip) NEGATIVE (NEGATIVE); UR BLOOD (Dip) 3+ mg/dL (NEGATIVE); UR CLARITY CLEAR (CLEAR); UR COLOR YELLOW (YELLOW); UR GLUCOSE (Dip) NEGATIVE (NEGATIVE); UR KETONES (Dip) NEGATIVE (NEGATIVE); UR LEUKOCYTE ESTERASE (Dip) 3+ Leu/ul (NEGATIVE); UR NITRITE (Dip) NEGATIVE (NEGATIVE); UR RBC 2 /HPF (0-5); UR SPECIFIC GRAVITY (Dip) 1.005 (1.003-1.030); UR TOTAL PROTEIN (Dip) NEGATIVE (NEGATIVE); UR UROBILINOGEN (Dip) NEGATIVE (NEGATIVE)
[2017-08-21] MEDS ORDERED: CEFTRIAXONE 2 GM/50 ML (PMX) 50 ML IVPB ONE (14:30)
[2017-08-22] MEDS ORDERED: CEFTRIAXONE 1 GM/50 ML (PMX) 50 ML IVPB SCH (15:00)
== END 2017-08-21 18:58 | DRG 948 ==
LOC: E/R 22:47 → MS3 08-18 00:43 → TEL 08-18 23:17
PROVIDERS: ADMIT Internal Medicine; ATTEND Internal Medicine
DX: R53.1 Weakness (principal); I10 Essential (primary) hypertension; E78.00 Pure hypercholesterolemia, unspecified; Z79.82 Long term (current) use of aspirin; Z85.3 Personal history of malignant neoplasm of breast; Z92.21 Personal history of antineoplastic chemotherapy; Z91.81 History of falling
CPT/HCPCS: 70450; 70551; 71010; 80048; 80053; 81001; 82607; 82746; 83735; 84100; 84443; 84484; 85025; 85610; 85730; 87040; 87086; 90686; 92610; 93005; 93306; 93880; 96374; 97116; 97161; 97530; J2270

== ENCOUNTER 2018-03-11 02:21 | Emergency (ER) | END 2018-03-11 07:27 | disposition home or self-care (01) ==

== ENCOUNTER 2018-07-29 18:26 | Emergency (ER) | END 2018-07-29 23:34 | disposition home or self-care (01) ==

== ENCOUNTER 2019-01-26 12:22 | Emergency (ER) | payer MEDICARE, OTHER ==
[~2019-01-26] VITALS: Ht 154.9 cm; Wt 46.0 kg
[~2019-01-26 12:22] MED LIST changes: +ACET325T33 PO; -ACET500C5 PO; -AMLO-218; +AMLO5TAB4 PO; -ASPI-664; -ATEN-138; +ATOR20TA38 PO; -CARB100T2 PO; +CARB1TAB2 PO; +CRAN200C2 PO; +DOCU-159 PO; +DONE10TA7 PO; +ISOS30TA20 PO; +NAPR-985 PO; +NITR0.4T39 SL; -SIMV40TA2; +TRAM50TA2 PO
[2019-01-26 12:31] VITALS: Ht 154.9 cm; Wt 46.0 kg
[2019-01-26] MEDS ORDERED: KETOROLAC 15 MG INJ IM STA (12:47)
--- NOTE | 2019-01-26 12:57 | ERD ---
ER Documentation Chief Complaint Chief Complaint s/p fall last night, no ko, right hip/right shoulder pain, dizzy HPI This is a 78-year-old female with a past medical history of hypertension, hyperlipidemia, CHF, Parkinson disease, dementia who is presenting after a fall last night. The patient reportedly fell on her right side. It was a mechanical fall. There is no reported head trauma. The patient did not lose consciousness. She denies headache or vision changes at this time. The patient does not endorse any lightheadedness or dizziness or fatigue. The patient did hit her right shoulder and right hip and complains of pain to both joints. It is an aching sore pain. The patient is typically able to ambulate with a walker, but this is been difficult due to her pain since last night. That said, the patient is able to range both joints. There is no other evidence of trauma. The patient denies feeling sick recently. The patient denies fever or chills. The patient has had no headache or vision changes. The patient does not endorse neck or back pain. The patient has had no chest pain or trouble breathing. The patient denies nausea or vomiting. The patient denies abdominal pain. The p atient denies changes to bowel movements or urination. The patient has had no focal deficits. The patient has had no weakness or numbness or tingling to the face or extremities. ROS All systems reviewed and are negative except as per history of present illness. Medications Home Meds Active Scripts Naproxen* (Naprosyn*) 500 Mg Tablet, 500 MG PO BID PRN for PAIN AND/OR INFLAMMATION, #30 TAB Prov:PREM TRIANA PA-C 07/29/18 Tramadol HCl (Tramadol HCl) 50 Mg Tablet, 50 MG PO Q4 PRN for PAIN, #20 TAB Prov:PREM TRIANA PA-C 07/29/18 Acetaminophen* (Tylenol*) 325 Mg Tablet, 650 MG PO Q6H PRN for PAIN AND OR ELEVATED TEMP, #14 TAB Prov:MARIE DE LOS SANTOS DO 03/11/18 Reported Medications Docusate Sodium* (Docusate Sodium*) 100 Mg Capsule, 100 MG PO DAILY, #30 CAP 03/11/18 Cranberry Extract (Cranberry) 200 Mg Capsule, 200 MG PO DAILY, CAP 03/11/18 Donepezil* (Aricept*) 10 Mg Tablet, 10 MG PO QHS, TAB 03/11/18 Carbidopa/Levodopa (Sinemet 25-100 mg Tablet) 1 Each Tablet, 1 EACH PO, TAB 03/11/18 Isosorbide Dinitrate* (Isosorbide Dinitrate*) 30 Mg Tablet, 30 MG PO DAILY, TAB 03/11/18 Atorvastatin Calcium* (Atorvastatin Calcium*) 20 Mg Tablet, 20 MG PO QHS, #30 TAB 08/17/17 Nitroglycerin* (Nitrostat*) 0.4 Mg Tab.subl, 0.4 MG SL Q5MIN PRN for CHEST PAIN, BOTTLE 08/17/17 Amlodipine Besylate* (Norvasc*) 5 Mg Tablet, 5 MG PO DAILY, TAB 08/17/17 Allergies Allergies: Coded Allergies: No Known Drug Allergies (Unverified Allergy, Mild, 01/26/19) PMhx/Soc History of Surgery: Yes (lumpectomy left breast) Anesthesia Reaction: No Hx Neurological Disorder: Yes (dementia) Hx Respiratory Disorders: No Hx Cardiac Disorders: Yes (HTN, HLD, CHF) Hx Psychiatric Problems: No Hx Miscellaneous Medical Probl: No Hx Alcohol Use: No Hx Substance Use: No Hx Tobacco Use: No FmHx Family History: No diabetes Physical Exam Vitals Vital Signs Date Temp Pulse Resp B/P (MAP) Pulse Ox O2 O2 Flow FiO2 Time Delivery Rate 01/26/19 97.8 76 18 125/64 100 Room Air 14:15 (84) 01/26/19 70 12 127/65 100 Room Air 12:35 (85) 01/26/19 97.6 67 18 125/60 99 12:31 (81) Physical Exam Const: No apparent distress, well-developed, well-nourished Head: Normocephalic, Atraumatic Eyes: Normal Conjunctiva. Extraocular movements intact. Pupils equal, round and reactive to light ENT: Normal External Ears, Nose and Mouth. Neck: Full range of motion. No meningismus. Resp: Clear to auscultation bilaterally, No wheezes, rales or rhonchi Cardio: Regular rate and rhythm. No murmurs, rubs or gallops Abd: Soft, non tender, non distended. Normal bowel sounds Skin: No petechiae or rashes Back: No midline tenderness. No CVA tenderness Ext: Thin. No cyanosis, or edema. Tenderness to the right hip and right shoulder but full range of motion. Neur: Awake and alert, oriented 1-2 (baseline). Cranial nerves intact. No facial droop. Normal strength, sensation and coordination. Psych: Normal Mood and Affect Results 24 hrs Current Medications Medications Dose Sig/Jermaine Start Time Status Last (Trade) Ordered Route PRN Stop Time Admin Dose Reason Admin Ketorolac 15 mg ONCE STAT 01/26/19 DC 01/26/19 Tromethamine IM 12:47 12:56 (Toradol) 01/26/19 12:51 Procedures/MDM MDM The patient's presentation warrants further investigation. Previous medical records, if available, were reviewed. EKG EKG read by me: Rate/Rhythm: Regular rate and rhythm at a rate of 71 bpm Intervals: Normal [place]: Normal Impression: Nonspecific repolarization changes without evidence of acute ischemia or arrhythmia IMAGING Imaging and Radiology interpretation reviewed. CXR FINDINGS: The lungs are clear. A nodular opacity at the left lung base may represent nipple shadow. There is no pleural effusion or pneumothorax. The cardiac and mediastinal contours are within normal limits. The aorta is tortuous and atherosclerotic. IMPRESSION: No acute pulmonary abnormality. Nodular opacity at the left lung base may represent nipple shadow. Recommend repeat PA and lateral chest radiographs with nipple markers. Electronically viewed and signed by Physician Roberto on 01/26/2019 13:48 XR R Shoulder FINDINGS: There is no acute fracture or dislocation. The bone mineralization is decreased. There are moderate degenerative changes at the right acromioclavicular joint and mild degenerative changes at the right glenohumeral joint. No soft tissue abnormality is seen. IMPRESSION: Osseous demineralization with mild to moderate degenerative changes of the right shoulder. No acute osseous abnormality seen. Electronically viewed and signed by Physician Roberto on 01/26/2019 13:49 XR R Hip FINDINGS: Osseous structures are intact. There are moderate degenerative changes of the right hip. The bone mineralization is decreased. Slight cortical irregularity at the right femoral greater trochanter appears degenerative. The soft tissues are unremarkable. IMPRESSION: 1. Osseous demineralization with moderate degenerative changes of the right hip. 2. Cortical irregularity at the femoral right greater trochanter is favored to be degenerative. Clinical correlation with point tenderness is recommended. Electronically viewed and signed by Physician Roberto on 01/26/2019 13:50 TREATMENT/DISPOSITION The patient presents after a trauma. The patient was evaluated fully without evidence of emergent posttraumatic pathology. The patient does not endorse any head trauma. The patient has no focal deficits. I've low suspicion for intracranial pathology. I have low suspicion for cerebral ischemia or intracranial hemorrhage. The patient has no cervical spine tenderness. He can move his neck in all directions without any pain. As stated above, he does not have any focal deficits. He is not altered or intoxicated. He does not have any distracting injuries. The patient's cervical spine was clinically cleared using the Nexus C-spine rule. The patient does not have any saddle anesthesia. He has not been incontinent of urine or stool. He has not had any retention of urine or stool. I have low suspicion for spinal cord injury. The patient's chest x-ray does not reveal any evidence of pneumonia or pneumothorax or pulmonary edema or pleural effusion. The patient's cardiomed iastinal silhouette is unremarkable. I do not suspect pericardial effusion. I do not see any mediastinal free air. I have low suspicion for esophageal tear or rupture. The patient does not have a widened mediastinum. The patient does not have chest pain radiating to the back. It does not have a sharp or tearing quality. I have low suspicion for thoracic aortic aneurysm or rupture or dissection. The patient's symptoms are not consistent with pulmonary embolism. The patient does not have any abdominal pain. I have low suspicion for posttraumatic intra-abdominal pathology. The patient's vital signs are unremarkable. I low suspicion for hepatic or splenic or renal trauma. The patient does not have any GI or urinary bleeding. I decreased suspicion for intestinal injury. I have low suspicion for urethral injury. The patient's x-rays of the right hip and right shoulder were unremarkable for any acute traumatic pathology. The x-ray of the hip demonstrated a cortical irregularity at the femoral right greater trochanter that was favored to be degenerative. The patient's pain is not in the lateral aspect of the hip but more anterior. I do not suspect a fracture. The patient was treated with Toradol in the emergency department and was able to stand and ambulate at her baseline. I have low suspicion for emergent extremity injury. There is no evidence of any penetrating injuries. The patient and her family reports that she is otherwise at her baseline. The patient was not lightheaded or dizzy and did not have an episode of syncope or near syncope. I do not feel the patient requires a full syncopal workup. DISCHARGE Upon reevaluation of the patient, symptoms have improved. No emergent diagnoses were identified. At this time, I feel that the patient stable for discharge. The patient was instructed to follow-up with a primary care physician in 1-3 days. The patient will be given strict precautions with which to return to the emergency department. Prescriptions: None The patient's blood pressure was elevated at greater than 120/80 while in the emergency department. The patient was otherwise stable with no evidence of hypertensive urgency or emergency. The patient does not require admission for blood pressure control. I have discussed with the patient the risks of hypertension. I have instructed the patient to return to the ER for any new or worsening symptoms including chest pain, shortness of breath, headache, blurred vision, confusion, nausea, vomiting or LOC. I have advised the patient to follow up with the primary care physician for outpatient monitoring and treatment for hypertension in 1-3 days. Disclaimer: Inadvertent spelling and grammatical errors are likely due to EHR/dictation software use and do not reflect on the overall quality of patient care. Note that the electronic time recorded on this note does not necessarily reflect the actual time of the patient encounter. Departure Diagnosis: Primary Impression: Fall with no significant injury Encounter type: initial encounter Qualified Codes: W19.XXXA - Unspecified fall, initial encounter Additional Impressions: Acute right hip pain Acute pain of right shoulder due to trauma Fall from ground level Condition: Stable Patient Instructions: Fall Prevention, Hip Contusion, Shoulder Pain (Uncertain Cause) Additional Instructions: Thank you for for coming to [facility] for your care today. Please ask your nurse or provider if you have questions about your care today and do not leave until all your questions have been answered. Please use any medications given as directed and follow-up with your doctor (or the doctor you were referred to) in the next 1-3 days. If you do not have a primary care doctor you may follow up at the [facility] or [facility] (listed below). You may also use motrin and tylenol as needed for fever and/or pain unless ins tructed otherwise by your provider or nurse. Indications for more urgent follow- up have been discussed, but you may return to the Emergency Department at ANY time for any worrisome or worsening symptoms. If you have abdominal pain, please know that no test or exam you received is perfect and you should follow up within 8 hours for continued pain. If you had any imaging studies today, such as an X-Ray or CT Scan, these studies will be reviewed later by a radiologist. You will be called if there are importa nt findings that were not identified today, so make sure the contact information you provided at registration is correct. If you received any narcotic pain control medicine today, such as Vicodin, Morphine or Dilaudid, your coordination and judgment may be affected for a number of hours. Please do not drive or operate heavy machinery, and you may want someone to assist you at home. If you were given a prescription for narcotic medication, be aware that it is very addictive- use sparingly and only if necessary. PLEASE SEEK FURTHER EVALUATION AND MANAGEMENT AT YOUR DOCTORS OFFICE WITHIN THE NEXT 1-3 DAYS. IT IS YOUR RESPONSIBILITY TO MAKE AN APPOINTMENT FOR FOLOW-UP CARE. IF YOU HAVE A PRIMARY DOCTOR, PLEASE CALL THEIR OFFICE TO SCHEDULE AN APPOINTMENT FOR FOLLOW UP. IF YOU DO NOT HAVE A PRIMARY DOCTOR YOU CAN CALL OUR PHYSICIAN REFERRAL HOTLINE AT IF YOU CAN NOT AFFORD TO SEE A PHYSICIAN YOU CAN CHOSE FROM THE FOLLOWING [facility] CLINICS: [facility] [address] [facility] [address] [facility] [facility] [address] [facility] [address] [facility] [address] [facility] [facility]. [address] DONNELL FABIAN MD Jan 26, 2019 12:46
[2019-01-26 14:15] VITALS: BP 125/64; PULSE 76; RESP 18
== END 2019-01-26 14:32 | disposition home or self-care (01) ==
LOC: E/R 12:22
DX: M25.551 Pain in right hip (principal); M25.511 Pain in right shoulder; R42 Dizziness and giddiness; I10 Essential (primary) hypertension; I50.9 Heart failure, unspecified
CPT/HCPCS: 71045; 73030; 73510; 93005; 99284; J1885